=== PATIENT | female | born 1990 | race Two or more races ===

== ENCOUNTER 2016-09-27 01:19 | Emergency (ER) | payer OTHER ==
[~2016-09-27] VITALS: Ht 172.7 cm; Wt 70.0 kg
[2016-09-27 01:22] VITALS: BP 124/75
[2016-09-27] MEDS ORDERED: HYDROCODONE/ACETAMINOPHEN 5/325MG TABLET PO ONE (03:15)
== END 2016-09-27 04:31 | disposition home or self-care (01) ==
LOC: ER 01:20
DX: J32.9 Chronic sinusitis, unspecified (principal); R51 Headache; R49.0 Dysphonia; R13.10 Dysphagia, unspecified; Z88.8 Allergy status to other drugs, medicaments and biological substances
CPT/HCPCS: 99283